=== PATIENT | male | born 1975 | race Two or more races ===

== ENCOUNTER 2024-04-02 04:19 | Emergency (ER) | payer MEDICAID, SELFPAY ==
[2024-04-02 04:52] VITALS: BP 126/79; PULSE 81; RESP 18; TEMP 36.9; O2SAT 97
[2024-04-02 04:55] VITALS: BMI 26.6
--- NOTE | 2024-04-02 05:10 | PD.EDRME ---
Rapid Medical Screening Exam RME Arrival date/time: 04/02/24 04:19 48 year old male present to emergency room with c/o of elbow pain/injury I have greeted and performed a focused initial assessment of this patient. A comprehensive ED assessment and evaluation of the patient, analysis of all test results, and completion of the medical decision making process will be conducted by additional ED providers. Chief Complaint: Extremity Injury, Upper Time Seen by Provider: 04/02/24 04:25 Vital signs: Vital Signs Temperature 98.5 F 04/02/24 04:52 Pulse Rate 81 04/02/24 04:52 Respiratory Rate 18 04/02/24 04:52 Blood Pressure 126/79 04/02/24 04:52 Pulse Oximetry (%) 97 04/02/24 04:52 Oxygen Delivery Method Room Air 04/02/24 04:52
--- NOTE | 2024-04-02 05:18 | XR_ITS ---
Examination: Right elbow 3 views Technique: Elbow AP, oblique, lateral 3 views Exam date and time: March 06, 2024 0541 hrs. Indications: Injury to the elbow today, elbow pain. Findings: Fracture of the bony olecranon spur which appears old but clinical correlation advised Humerus radial neck and head and olecranon appear intact Impression: Fracture of the bony olecranon spur which appears old but clinical correlation advised
[2024-04-02] MEDS: KETOROLAC INJ 60 MG/2 ML VIAL 30 MG IM (05:26)
--- NOTE | 2024-04-02 08:03 | PD.EDUPEX ---
Upper Extremity Injury RME/HPI General Chief Complaint: Extremity Injury, Upper Stated Complaint: RIGHT ARM INJURY Time Seen by Provider: 04/02/24 04:25 Source: patient Arrival date/time: 04/02/24 04:19 48-year-old male presents emergency department complaining of right elbow pain after pulling a fridge. Patient denies any falls or direct trauma. Patient denies any history of falls or injury to right elbow. Mode of arrival: ambulatory Limitations: no limitations RME / HPI RME / HPI narrative: 04/02/24 04:19 48 year old male present to emergency room with c/o of elbow pain/injury I have greeted and performed a focused initial assessment of this patient. A comprehensive ED assessment and evaluation of the patient, analysis of all test results, and completion of the medical decision making process will be conducted by additional ED providers. Related Data Previous Rx's ?Medication ?Instructions ?Recorded Hydrocodone/Acetaminophen * (NORCO 1 tab PO Q6H PRN PAIN #12 tabs 10/29/16 5/325 *) ibuprofen 800 mg tablet 800 mg PO TID PRN pain #30 tabs 08/08/20 ibuprofen 800 mg tablet 800 mg PO TID PRN pain #30 tabs 09/06/21 celecoxib 200 mg capsule (Celebrex) 200 mg PO BID PRN pain #14 caps 04/02/24 hydrocodone 5 mg-acetaminophen 325 1 tab PO BID PRN pain #10 tabs 04/02/24 mg tablet Allergies Allergy/AdvReac Type Severity Reaction Status Date / Time No Known Allergies Allergy Verified 04/02/24 04:23 Review of Systems Review of Systems Systems Reviewed: All systems reviewed, normal except as documented Constitutional Constitutional: Reports system reviewed and no additional complaints, except as documented, Denies body ache(s), Denies chills and Denies fever(s) Eyes Eyes: Reports system reviewed and no additional complaints, except as documented and Denies change in vision ENT Ears, Nose, Mouth, and Throat: Reports system reviewed and no additional complaints, except as documented, Denies disequilibrium, Denies dizziness, Denies sore throat and Denies vertigo Cardiovascular Cardiovascular: Reports system reviewed and no additional complaints, except as documented, Denies chest pain and Denies dyspnea Respiratory Respiratory: Reports system reviewed and no additional complaints, except as documented, Denies chest congestion, Denies cough and Denies dyspnea Gastrointestinal Gastrointestinal: Reports system reviewed and no additional complaints, except as documented, Denies abdominal pain, Denies nausea and Denies vomiting Musculoskeletal Musculoskeletal: Reports system reviewed and no additional complaints, except as documented, Denies abnormal gait and Reports arthralgias Integumentary/Breasts Skin/Breast: Reports system reviewed and no additional complaints, except as documented, Denies erythema, Denies rash and Denies wounds Neurologic Neurologic: Reports system reviewed and no additional complaints, except as documented, Denies abnormal gait, Denies disequilibrium, Denies dizziness and Denies vertigo Past Medical History Social History SMOKING STATUS: Never smoker ED Exam General Limitations: Present no limitations General appearance: Present alert and in no apparent distress Head Head exam: Present atraumatic Eye Eye exam: Present normal appearance, PERRL and EOMI ENT ENT exam: Present normal exam, normal oropharynx and mucous membranes moist Neck Neck exam: Present normal inspection, full ROM and trachea midline Chest Chest inspection: Present normal inspection and symmetric chest wall rise Respiratory Respiratory exam: Present normal lung sounds bilaterally Cardiovascular Cardiovascular exam: Present regular rate, normal rhythm and normal heart sounds Abdominal Exam Abdominal exam: Present soft and normal bowel sounds Extremities Exam Extremities exam: Present normal inspection and full ROM Expanded Upper Extremity Exam Elbow exam: Present full ROM and tenderness (Right elbow); Absent swelling, ecchymosis, deformity or erythema Vascular exam: Normal capillary refill Back Exam Back exam: Present normal inspection and full ROM Neurological Exam Neurological exam: Present alert, oriented X3 and CN II-XII intact Psychiatric Psychiatric exam: Present normal affect and normal mood Skin Skin exam: Present warm, dry, intact and normal color Course Quality Measures none Orders Category Date Time Status XR elbow comp RT min 3V Stat Exams 04/02/24 05:18 Completed Ketorolac Inj [Toradol Inj] Med 04/02/24 05:18 Discontinued 30 mg IM X1 ONE Vital Signs Vital signs: Vital Signs Temperature 98.5 F 04/02/24 04:52 Pulse Rate 81 04/02/24 04:52 Respiratory Rate 18 04/02/24 04:52 Blood Pressure 126/79 04/02/24 04:52 Pulse Oximetry (%) 97 04/02/24 04:52 Oxygen Delivery Method Room Air 04/02/24 04:52 97% room air within normal limits. Extremity Injury MDM Narrative MDM Narrative:: 48-year-old male presents emergency department complaining of right elbow pain after pulling a fridge. Patient denies any falls or direct trauma. Patient denies any history of falls or injury to right elbow. X-ray findings: Findings: Fracture of the bony olecranon spur which appears old but clinical correlation advised Humerus radial neck and head and olecranon appear intact Dr Darden consulted and recommends to place patient on pain medication and sling and have patient follow-up with primary care provider and request referral to self pay specialist if symptoms persist. Patient's right upper extremity is neurovascularly intact with right elbow full active range of motion with some pain. Patient placed in sling sent home with pain medication and instructed how to properly apply ice to right elbow for pain relief and instructed to follow-up with primary care provider and request referral to self pay specialist Dr. Kwon if symptoms persist. Instructed patient to return to the emergency department for any worsening symptoms or possible MRI if symptoms persist. Patient data External records reviewed:: [facility] previous records Clinical information provided by:: patient Social determinants that could affect healthcare access:: none Patient has the following chronic illnesses:: N/A How is presenting disease/condition affected by chronic disease/condition?: no chronic disease Evaluation data The following diagnostics were reviewed and interpreted by me:: radiology exam(s) Lab and/or radiology exams considered but not ordered:: Ordered Interpretation Summary: Interpreted by me Medications / Prescriptions Medications or Prescriptions considered but not ordered:: Ordered Medication administrations:: Medication Administration History Discontinued Medications Ketorolac Tromethamine (Ketorolac Inj 60 Mg/2 Ml Vial) 30 mg IM X1 ONE Stop: 04/02/24 05:19 Last Admin: 04/02/24 05:26 Dose: 30 mg Documented By: CB Given Consultations Consultation(s) initiated? (list below): Yes Consultation #1 (Physician, Specialty, Details): Dr. darden Diagnosis Upper Extremity Injury Differential Diagnosis: other (Elbow dislocation, elbow fracture, septic arthritis) Most likely diagnosis given after review of the tests above:: Olecranon fracture Admission Indicated Admission indicated?: not indicated Admission Request Was there a request for admission?: No Disposition Plan Disposition Plan: Discharge Discharge Attestation Discharge Attestation: The patient and all family members were given an opportunity to ask questions and understood the discharge instructions. Discharge instructions specifically effects, indications for sooner follow up or return to the emergency department, and the expected course of current diagnosis. Patient condition: Stable Discharge Plan Plan Patient Disposition: HOME (Self Care) Disposition Comment: Stable Prescriptions/Referrals Prescriptions/Med Rec: New celecoxib [Celebrex] 200 mg capsule 200 mg PO BID PRN (Reason: pain) Qty: 14 0RF hydrocodone-acetaminophen 5-325 mg tablet 1 tab PO BID MDD 2 tabs PRN (Reason: pain) Qty: 10 0RF No Action Hydrocodone/Acetaminophen * (NORCO 5/325 *) 1 TAB tablet 1 tab PO Q6H PRN (Reason: PAIN) Qty: 12 0RF ibuprofen 800 mg tablet 800 mg PO TID PRN (Reason: pain) Qty: 30 0RF ibuprofen 800 mg tablet 800 mg PO TID PRN (Reason: pain) Qty: 30 0RF Referrals: Mae Webb PA-C [Primary Care Provider] - In 1 week Problem List Clinical Impression: Closed olecranon fracture Patient/Caregiver Discharge Instructions Discharge Activity: activity as tolerated Education Materials: ED Elbow Fracture, ED RICE Additional Instructions: Take medication as prescribed. Follow-up with primary care provider and request referral to self pay specialist Dr. Kwon if symptoms persist. Return to the emergency department on Thursday if symptoms worsen for possible MRI if not follow-up with primary and can be done outpatient. Print Language: [place] Stand Alone Forms: [employer] Award Info., Work/School Release, Patient Portal Info Letter STELLA/ISACC Supervising Physician KRISTINA Supervising Physician: Dr. Torrez
== END 2024-04-02 09:15 | disposition home or self-care (01) ==
PROVIDERS: Emergency Provider Emergency Medicine; PCP Physician Assistant
DX: S52.021A Displaced fracture of olecranon process without intraarticular extension of right ulna, initial encounter for closed fracture (principal); X50.9XXA Other and unspecified overexertion or strenuous movements or postures, initial encounter
CPT/HCPCS: 73080; 96372; 99283; A4565; J1885

== ENCOUNTER → 2024-05-10 | Outpatient (CLI) | payer MEDICAID, SELFPAY ==
--- NOTE | 2024-05-10 09:28 | XR_ITS ---
Examination: Wrist, right 3 views Technique: Wrist AP, oblique, lateral 3 views Date and time of exam: May 10, 2024 1023 hours INDICATIONS: Right wrist pain beginning one month ago. 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
--- NOTE | 2024-05-10 16:08 | XR_ITS ---
Examination: Hand, right 3 views Technique: Hand AP, oblique, lateral 3 views Date and time of exam: May 10, 2024 1615 hours INDICATIONS: Right hand pain beginning one month ago FINDINGS: Minimal osteoarthritis intercarpal metacarpal and interphalangeal joints No erosive arthritis No fracture or dislocation No cortical bone destruction No opaque foreign body IMPRESSION: Minimal osteoarthritis
--- NOTE | 2024-05-10 16:08 | XR_ITS ---
Examination: Right elbow 3 views Technique: Elbow AP, oblique, lateral 3 views Exam date and time: May 10, 2024 1415 hours INDICATIONS: Right elbow pain this week. FINDINGS: Mild elbow osteoarthritis No interval fracture or dislocation 6 mm posterior bony olecranon spur IMPRESSION: No acute fracture Mild elbow osteoarthritis
== END | disposition home or self-care (01) ==
PROVIDERS: PCP Nurse Practitioner Gerontology; Referring Provider Nurse Practitioner Gerontology; Visit Provider Nurse Practitioner Gerontology
DX: M19.031 Primary osteoarthritis, right wrist (principal); M19.021 Primary osteoarthritis, right elbow; M19.041 Primary osteoarthritis, right hand
CPT/HCPCS: 73080; 73110; 73130

== ENCOUNTER → 2025-04-18 | Outpatient (CLI) | payer MEDICAID, SELFPAY ==
--- NOTE | 2025-04-18 15:00 | XR_ITS ---
EXAMINATION: Ultrasound soft tissue neck TECHNIQUE: Grayscale sonographic image soft tissue neck Date and time: April 18, 2025, 1511 hours INDICATIONS: Recurrent neck pain beginning 1 month ago. FINDINGS: Multiple lymph nodes in the neck bilaterally, the largest in the right upper neck 18 x 19 mm left upper neck 23 x 9 mm IMPRESSION: Significant cervical lymphadenopathy, recommend CT soft tissue neck post intravenous contrast follow-up
== END | disposition home or self-care (01) ==
LOC: CDIM 14:57
PROVIDERS: PCP Physician Assistant; Referring Provider Nurse Practitioner Primary Care; Visit Provider Physician Assistant
DX: R59.0 Localized enlarged lymph nodes (principal)
CPT/HCPCS: 76536